=== PATIENT | male | born 1975 | race Caucasian/White ===

== ENCOUNTER 2018-05-27 20:51 | Emergency (ER) | payer BC ==
[~2018-05-27] VITALS: Ht 180.3 cm; Wt 100.7 kg
[2018-05-27] MEDS ORDERED: fentaNYL CITRATE 100 MCG/2 ML VL IV ONE (21:30)
[2018-05-27 22:06] VITALS: BP 168/87
== END 2018-05-27 23:00 | disposition home or self-care (01) ==
LOC: ER 20:51
DX: S42.142A Displaced fracture of glenoid cavity of scapula, left shoulder, initial encounter for closed fracture (principal); S42.292A Other displaced fracture of upper end of left humerus, initial encounter for closed fracture; X50.0XXA Overexertion from strenuous movement or load, initial encounter; Y93.89 Activity, other specified; Y99.8 Other external cause status; Y92.89 Other specified places as the place of occurrence of the external cause
CPT/HCPCS: 73030; 96372; 99283; J3010; J7030

== ENCOUNTER 2021-06-02 14:09 | Emergency (ER) | payer BC, MEDICAID ==
[~2021-06-02] VITALS: Ht 182.9 cm; Wt 117.9 kg
[2021-06-02 16:27] VITALS: BP 107/52
== END 2021-06-02 16:30 | disposition home or self-care (01) ==
LOC: ER 14:09
DX: M79.10 Myalgia, unspecified site (principal); M79.662 Pain in left lower leg; R22.42 Localized swelling, mass and lump, left lower limb
CPT/HCPCS: 93971

== ENCOUNTER 2021-06-22 10:39 | Emergency (ER) | payer MEDICAID ==
[~2021-06-22] VITALS: Ht 180.3 cm; Wt 117.9 kg
[2021-06-22 12:30] VITALS: BP 144/83
[2021-06-22] MEDS ORDERED: TETRACAINE HCL 0.5% OPTH(EYE) SOLN 4ML LEFTEYE ONE (12:45)
[2021-06-22] MEDS ORDERED: FLUORESCEIN SOD OPTH TEST STRIP LEFTEYE ONE (12:45)
[2021-06-22] MEDS ORDERED: POLYSOL15 OP (13:32)
== END 2021-06-22 13:42 | disposition home or self-care (01) ==
LOC: ER 10:39
DX: T15.92XA Foreign body on external eye, part unspecified, left eye, initial encounter (principal); Z79.899 Other long term (current) drug therapy; X58.XXXA Exposure to other specified factors, initial encounter; Y93.89 Activity, other specified; Y92.89 Other specified places as the place of occurrence of the external cause; Y99.8 Other external cause status

== ENCOUNTER 2021-12-04 08:44 | Inpatient (IN) | payer MEDICAID ==
[~2021-12-04] VITALS: Ht 185.4 cm; Wt 103.3 kg
[~2021-12-04 08:44] MED LIST: POLYSOL15 OP
[2021-12-04 09:36] LABS: Basophils # (auto) 0.1 10 ^3/uL (0-0.2); Basophils % (auto) 1.4 % (0.0-2.0); Eosinophils # (auto) 0.2 10 ^3/uL (0-0.8); Hematocrit 46.9 % (41.0-53.0); Hemoglobin 15.8 g/dL (13.5-17.5); Lymphocytes # (auto) 2.6 10 ^3/uL (0.4-5.4); Lymphocytes % (auto) 31.3 % (10.0-50.0); Mean Corpuscular Hemoglobin 30.2 pg (28.0-32.0); Mean Corpuscular Hgb Conc. 33.6 g/dL (32.0-36.0); Mean Corpuscular Volume 89.8 fL (80.0-100.0); Monocytes # (auto) 0.8 10 ^3/uL (0-1.3); Neutrophils # (auto) 4.5 10 ^3/uL (1.6-8.6); Neutrophils % (auto) 54.3 % (37.0-80.0); Nucleated Red Blood Cells % 0.1 %; Red Blood Cells 5.23 10^6/uL (4.5-5.90); Red Cell Distribution Width 12.6 % (11.8-14.3); White Blood Cell 8.3 10^3/uL (4.4-10.8)
[2021-12-04 09:58] LABS: Albumin 3.7 g/dL (3.4-5.0); Calcium 9.2 mg/dL (8.5-10.1); Potassium 4.2 mmol/L (3.5-5.1)
[2021-12-04 10:02] LABS: BUN/Creatinine Ratio 15.7; Bilirubin, Total 1.8 mg/dL (0.2-1.0); Total Protein 7.6 g/dL (6.4-8.2)
[2021-12-04] MEDS ORDERED: HYDROcodone-ACET 5/325MG TAB PO PRN (13:15)
[2021-12-04] MEDS ORDERED: SODIUM CHLORIDE 0.9% 1,000 ML IV ONE (13:15)
[2021-12-04] MEDS: ONDANSETRON HCL 4 MG/2 ML VIAL IV PRN ×3 (13:37→23:50)
[2021-12-04] MEDS: MORPHINE SULFATE INJ 2 MG/ml SYRG IV PRN ×3 (13:37→23:50)
[2021-12-04 14:05] LABS: INR 0.96 (0.9-1.15)
[2021-12-04] MEDS: SODIUM CHLORIDE 0.9% 1,000 ML IV SCH ×2 (15:32→22:46)
[2021-12-04 19:38] LABS: Urine Bacteria NONE SEEN /hpf (None Seen); Urine Blood Negative /uL (Negative); Urine Mucus FEW (None Seen); Urine Specific Gravity 1.024 (1.001-1.035); Urine WBC <1 /hpf (0 - 3)
[2021-12-04 22:14] VITALS: BP 112/73
[2021-12-04 22:28] VITALS: BP 112/73
[2021-12-05 04:25] LABS: Basophils # (auto) 0.1 10 ^3/uL (0-0.2); Basophils % (auto) 1.1 % (0.0-2.0); Eosinophils # (auto) 0.2 10 ^3/uL (0-0.8); Eosinophils % (auto) 2.2 % (0.0-7.0); Hematocrit 35.8 % (41.0-53.0); Hemoglobin 11.6 g/dL (13.5-17.5); Lymphocytes # (auto) 2.7 10 ^3/uL (0.4-5.4); Lymphocytes % (auto) 35.9 % (10.0-50.0); Mean Corpuscular Hemoglobin 29.5 pg (28.0-32.0); Mean Corpuscular Hgb Conc. 32.5 g/dL (32.0-36.0); Mean Corpuscular Volume 90.8 fL (80.0-100.0); Monocytes # (auto) 0.8 10 ^3/uL (0-1.3); Monocytes % (auto) 10.6 % (0.0-12.0); Neutrophils # (auto) 3.7 10 ^3/uL (1.6-8.6); Neutrophils % (auto) 50.2 % (37.0-80.0); Nucleated Red Blood Cells % 0.1 %; Red Blood Cells 3.95 10^6/uL (4.5-5.90); White Blood Cell 7.4 10^3/uL (4.4-10.8)
[2021-12-05 04:35] LABS: Albumin 3.4 g/dL (3.4-5.0); BUN/Creatinine Ratio 18.3; Calcium 8.5 mg/dL (8.5-10.1); Potassium 3.7 mmol/L (3.5-5.1)
[2021-12-05 04:38] LABS: Bilirubin, Total 0.3 mg/dL (0.2-1.0); Total Protein 5.8 g/dL (6.4-8.2)
[2021-12-05 05:30] VITALS: BP 109/62
[2021-12-05] MEDS: MORPHINE SULFATE INJ 2 MG/ml SYRG IV PRN ×3 (06:03→22:32)
[2021-12-05] MEDS: ONDANSETRON HCL 4 MG/2 ML VIAL IV PRN ×3 (06:03→22:30)
[2021-12-05 08:15] VITALS: BP 97/64
[2021-12-05 09:00] VITALS: BP 97/64
[2021-12-05] MEDS: SODIUM CHLORIDE 0.9% 1,000 ML IV SCH ×2 (12:20→19:15)
[2021-12-05 13:00] VITALS: BP 99/53
[2021-12-05] MEDS ORDERED: IOHEXOL 300 MG/ML 100ML BOTTLE IJ ONE (15:26)
[2021-12-05] MEDS: PANTOPRAZOLE 40 MG TAB PO SCH ×2 (16:54→22:10)
[2021-12-05 17:00] VITALS: BP 111/75
[2021-12-06] MEDS: SODIUM CHLORIDE 0.9% 1,000 ML IV SCH ×2 (04:45→17:19)
[2021-12-06 05:00] VITALS: BP 140/85
[2021-12-06 09:00] VITALS: BP 114/81
[2021-12-06] MEDS: MORPHINE SULFATE INJ 2 MG/ml SYRG IV PRN (09:33)
[2021-12-06] MEDS: PANTOPRAZOLE 40 MG TAB PO SCH ×2 (09:36→21:55)
[2021-12-06] MEDS ORDERED: ACETAMINOPHEN 500 MG TAB PO PRN (10:45)
[2021-12-06] MEDS: SUCRALFATE 1 GM/10 ML ORAL SUSP PO SCH ×3 (12:38→21:55)
[2021-12-06] MEDS: LACTULOSE 20Gm/30ML SOLN PO PRN (12:38)
[2021-12-06 13:00] VITALS: BP 125/71
[2021-12-06] MEDS ORDERED: MORPHINE SULFATE INJ 2 MG/ml SYRG IV PRN (14:30)
[2021-12-06 17:00] VITALS: BP 146/92
[2021-12-06 22:00] VITALS: BP 125/92
[2021-12-07] MEDS: SODIUM CHLORIDE 0.9% 1,000 ML IV SCH ×3 (03:03→21:39)
[2021-12-07 05:00] VITALS: BP 122/79
[2021-12-07 06:15] LABS: Calcium 8.6 mg/dL (8.5-10.1); Potassium 3.9 mmol/L (3.5-5.1)
[2021-12-07 06:18] LABS: BUN/Creatinine Ratio 7.1
[2021-12-07] MEDS: SUCRALFATE 1 GM/10 ML ORAL SUSP PO SCH ×4 (06:25→21:37)
[2021-12-07 06:32] LABS: Basophils # (auto) 0 10 ^3/uL (0-0.2); Basophils % (auto) 0.6 % (0.0-2.0); Eosinophils # (auto) 0.3 10 ^3/uL (0-0.8); Eosinophils % (auto) 4.6 % (0.0-7.0); Hemoglobin 14.7 g/dL (13.5-17.5); Lymphocytes # (auto) 2.3 10 ^3/uL (0.4-5.4); Mean Corpuscular Hemoglobin 30.4 pg (28.0-32.0); Mean Corpuscular Hgb Conc. 34.3 g/dL (32.0-36.0); Mean Corpuscular Volume 88.7 fL (80.0-100.0); Monocytes # (auto) 0.6 10 ^3/uL (0-1.3); Monocytes % (auto) 10.4 % (0.0-12.0); Neutrophils # (auto) 2.3 10 ^3/uL (1.6-8.6); Neutrophils % (auto) 42.4 % (37.0-80.0); Nucleated Red Blood Cells % 0.1 %; Red Blood Cells 4.84 10^6/uL (4.5-5.90); Red Cell Distribution Width 12.5 % (11.8-14.3); White Blood Cell 5.5 10^3/uL (4.4-10.8)
[2021-12-07 09:00] VITALS: BP 125/90
[2021-12-07] MEDS: PANTOPRAZOLE 40 MG TAB PO SCH ×2 (09:58→21:37)
[2021-12-07] MEDS: LACTULOSE 20Gm/30ML SOLN PO PRN (09:58)
[2021-12-07 13:00] VITALS: BP 128/76
[2021-12-07 13:28] LABS: Hepatitis A Ab IgM Negative
[2021-12-07 13:29] LABS: Hepatitis B Core IgM Negative
[2021-12-07 13:30] LABS: Hepatitis C Antibody Negative (Negative)
[2021-12-07 17:00] VITALS: BP 130/93
[2021-12-07 19:31] LABS: INR 0.97 (0.9-1.15); Partial Thromboplastin Time 26.4 sec (24.6-33.4)
[2021-12-07 22:00] VITALS: BP 138/93
[2021-12-08 05:00] VITALS: BP 126/86
[2021-12-08] MEDS: SUCRALFATE 1 GM/10 ML ORAL SUSP PO SCH ×3 (07:09→17:36)
[2021-12-08] MEDS: SODIUM CHLORIDE 0.9% 1,000 ML IV SCH ×2 (07:15→17:36)
[2021-12-08 09:00] VITALS: BP 132/85
[2021-12-08] MEDS: PANTOPRAZOLE 40 MG TAB PO SCH (10:00)
[2021-12-08] MEDS ORDERED: SODIUM CHLORIDE LOCK 10 ML ONE (10:32)
[2021-12-08] MEDS ORDERED: LIDOCAINE VISCOUS 2% 15ML UD ONE (10:32)
[2021-12-08] MEDS ORDERED: diphenhdrAMINE HCL 50 MG/1 ML VL ONE (10:33)
[2021-12-08 13:12] VITALS: BP 125/63
[2021-12-08] MEDS: fentaNYL CITRATE 100 MCG/2 ML VL ONE ×2 (14:18→14:21)
[2021-12-08] MEDS: MIDAZOLAM HCL 5 MG/ML-1ML VIAL ONE ×2 (14:18→14:21)
[2021-12-08 17:02] VITALS: BP 124/77
[2021-12-08] MEDS ORDERED: PANT40TA2 PO (17:46)
== END 2021-12-08 18:49 | disposition home or self-care (01) | DRG 241 ==
LOC: ER 08:44 → OVERFLOW 13:11 → CENTRAL 21:42
PROVIDERS: ADMIT Nurse Practitioner Family; ATTEND Internal Medicine
PROC: 0DB68ZX Excision of Stomach, Via Natural or Artificial Opening Endoscopic, Diagnostic (ICD-10-PCS; principal; 2021-12-08 14:15)
DX: K29.70 Gastritis, unspecified, without bleeding (principal); E66.01 Morbid (severe) obesity due to excess calories; F17.210 Nicotine dependence, cigarettes, uncomplicated; I10 Essential (primary) hypertension; K21.9 Gastro-esophageal reflux disease without esophagitis; Z68.30 Body mass index [BMI] 30.0-30.9, adult; R74.01 Elevation of levels of liver transaminase levels
CPT/HCPCS: 36415; 43239; 71046; 74177; 76705; 78226; 80048; 80053; 80074; 81001; 82150; 82270; 83690; 84484; 85025; 85610; 85730; 86850; 86900; 86901; 93005; 96361; 96374; 96375; G0378; J2250; J2405